=== PATIENT | male | born 1995 | race Caucasian/White ===

== ENCOUNTER 2021-04-25 09:56 | Emergency (ER) | payer OTHER, BC | END 2021-04-25 11:34 | disposition home or self-care (01) | LOC: ERS 09:56 | DX: S43.102A Unspecified dislocation of left acromioclavicular joint, initial encounter (principal); F17.290 Nicotine dependence, other tobacco product, uncomplicated; V80.018A Animal-rider injured by fall from or being thrown from other animal in noncollision accident, initial encounter; Y93.I9 Activity, other involving external motion ==